=== PATIENT | female | born 1930 | race Caucasian/White ===

== ENCOUNTER 2016-05-16 17:58 | Emergency (ER) | payer MEDICARE, MEDICAID | END 2016-05-16 19:28 | disposition left against medical advice (07) | LOC: UCCORT 17:58 | DX: J02.9 Acute pharyngitis, unspecified (principal); Z53.21 Procedure and treatment not carried out due to patient leaving prior to being seen by health care provider ==

== ENCOUNTER 2017-01-09 09:29 | Emergency (ER) | payer MEDICARE, MEDICAID ==
[2017-01-09 10:27] VITALS: BP 108/50
--- NOTE | 2017-01-09 10:52 | UC ---
Skin Complaint HPI - HPI Summary HPI Summary: Pt is a resident in a senior care. Pt care sales representative groceries states that pt woke this morning wiht c/o right foot tenderness, right foot swelling and serous drainage from right second toe. - History of Current Complaint Time Seen by Provider: 01/09/17 10:05 Stated Complaint: RIGHT FOOT SWOLLEN Hx Obtained From: Family/Tool/Die Maker Hx From Patient Unobtainable Due To: Dementia Hx Last Menstrual Period: n/a ?: No Onset/Duration: Sudden Onset, Still Present Skin Exposure Onset/Duration: Hours Ago Timing: Constant Onset Severity: Mild Current Severity: Mild Location: Discrete, Foot (Right) Character: Redness, Raised Aggravating Factor(s): Touch Alleviating Factor(s): Nothing Associated Signs & Symptoms: Positive: Drainage - serous, Tenderness - right foot Related History: Extremes of Age - Allergy/Home Medications Allergies/Adverse Reactions: Allergies Allergy/AdvReac Type Severity Reaction Status Date / Time Penicillins Allergy Unknown Unknown Verified 01/09/17 10:25 Reaction Details Sulfamethoxazole Allergy Unknown Unknown Verified 01/09/17 10:25 w/Trimethoprim Reaction [From Bactrim] Details VRE Allergy Unknown Uncoded 01/09/17 10:25 Reaction Details Home Medications: Home Medications Acetaminophen [Eq Acetaminophen] 650 mg PO SEE INSTRUCTIONS PRN 01/09/17 [ History Confirmed 01/09/17] Alum & Mag Hydrox-Simethicone [Mylanta 200-200-20 mg/5Ml] 1 rubia PO Q4H PRN 01/09 [History Confirmed 01/09/17] Bacitracin OINT* 0 gm TOPICAL SEE INSTRUCTIONS 01/09/17 [History Confirmed 01/09] Clotrimazole 1% TOPICAL (NF) [Lotrimin 1% TOPICAL (NF)] 1 % EX SEE INSTRUCTIONS 01/09/17 [History Confirmed 01/09/17] Hemmorhoid Ointment 1 applic LA SEE INSTRUCTIONS 01/09/17 [History Confirmed ] Menthol-Zinc Oxide [Gold Andrade] 1 pow EX SEE INSTRUCTIONS 01/09/17 [History Confirmed 01/09/17] Nystatin (Bulk) [Nystatin] 1 pow XX SEE INSTRUCTIONS 01/09/17 [History Confirmed 01/09/17] Oxycodone [Xtampza ER] 5 mg PO BID 01/09/17 [History Confirmed 01/09/17] Polyethylene Glycol 3350* [Miralax*] 17 gm PO DAILY 01/09/17 [History Confirmed 01/09/17] Prevident 1.1% 1 unit PO SEE INSTRUCTIONS 01/09/17 [History Confirmed 01/09/17] Triamcinolone 0.1% CREAM (NF) [Kenalog 0.1% Cream (NF)] 1 applic .SEE ORDER SEE INSTRUCTIONS 01/09/17 [History Confirmed 01/09/17] Review of Systems Constitutional: Negative Skin: Other - erythema, tenderness, serous drainage, swelling Eyes: Negative ENT: Negative Respiratory: Negative Cardiovascular: Negative Gastrointestinal: Negative Genitourinary: Negative Motor: Negative Neurovascular: Negative Musculoskeletal: Negative, Decreased ROM - generalized Neurological: Negative Psychological: Negative Is Patient Immunocompromised?: No All Other Systems Reviewed And Are Negative: Yes PMH/Surg Hx/FS Hx/Imm Hx Previously Healthy: Yes Cardiovascular History: Cardiac Disease Neurological History: Dementia - Surgical History Surgical History: None Surgery Procedure, Year, and Place: Laminectomies L3-L5,C4-T2 and fusion C4-T6, - Family History Known Family History: Positive: Hypertension Family History: lives in supportive [facility] -pt is unable to communicate, staff has no documentation of PFH - Social History Occupation: Retired Lives: Assisted Living Alcohol Use: None Substance Use Type: None Smoking Status (MU): Never Smoked Tobacco Have You Smoked in the Last Year: No - Immunization History Most Recent Influenza Vaccination: 2013 Physical Exam Triage Information Reviewed: Yes Completion Of Physical Exam Limited Due To: Other - dementia Appearance: Well-Appearing Vital Signs: Initial Vital Signs Temp 97.6 F 01/09/17 10:08 Pulse 84 01/09/17 10:08 Resp 24 01/09/17 10:08 BP 108/50 01/09/17 10:08 Vital Signs Reviewed: Yes Eye Exam: Normal ENT Exam: Normal Dental Exam: Normal Neck exam: Normal Respiratory Exam: Normal Cardiovascular Exam: Normal Musculoskeletal: Positive: Strength Limited @ - PMH, ROM Limited @ - PMH Neurological Exam: Normal Psychological Exam: Normal Skin Exam: Other - right dorasl aspect, mild erythema, tenderness, right second toe, mild swelling, erythematous, with dried scab on MIP joint that has serous drainage Course/Dx - Differential Diagnoses - Skin Complaint Differential Diagnoses: Cellulitis, MRSA - Diagnoses Provider Diagnoses: cellulitis Discharge - Discharge Plan Condition: Stable Disposition: HOME Prescriptions: DOXYcycline CAP(*) [DOXYcycline 100MG CAP(*)] 100 mg PO Q12H #20 cap Patient Education Materials: Cellulitis (ED) Referrals: Meg Mead PA [Primary Care Provider] - As Soon As Possible Additional Instructions: Please follow up with Wound Care: [facility] [address] [place] [id number] or [facility] [address] [place] [address] ([address]) [place], [place] [phone]
== END 2017-01-09 11:14 | disposition home or self-care (01) ==
LOC: UCCORT 09:29
DX: L03.115 Cellulitis of right lower limb (principal); B95.62 Methicillin resistant Staphylococcus aureus infection as the cause of diseases classified elsewhere; I51.9 Heart disease, unspecified; F03.90 Unspecified dementia, unspecified severity, without behavioral disturbance, psychotic disturbance, mood disturbance, and anxiety; Z88.0 Allergy status to penicillin; Z88.2 Allergy status to sulfonamides
CPT/HCPCS: 87070; 87205; 87640; 87641; 99212; G0463

== ENCOUNTER 2017-02-07 18:34 | Emergency (ER) | payer MEDICARE, MEDICAID ==
--- NOTE | 2017-02-07 20:19 | UC ---
Respiratory Complaint HPI - HPI Summary HPI Summary: from [facility] fever cough and congestion began today - History of Current Complaint Chief Complaint: UCRespiratory Stated Complaint: CONGESTION/COUGH Time Seen by Provider: 02/07/17 20:09 Hx Obtained From: Patient, Family/Senior Software Engineering Manager Hx Last Menstrual Period: n/a ?: No Onset/Duration: Sudden Onset, Lasting Days - 1 Timing: Constant Severity Initially: Moderate Severity Currently: Moderate Character: Cough: Productive - cough so hard she is throwing up Aggravating Factors: Nothing Alleviating Factors: Nothing Associated Signs And Symptoms: Positive: Fever, Wheezing, URI, Nasal Congestion - Allergies/Home Medications Allergies/Adverse Reactions: Allergies Allergy/AdvReac Type Severity Reaction Status Date / Time Penicillins Allergy Unknown Unknown Verified 02/07/17 20:19 Reaction Details Sulfamethoxazole Allergy Unknown Unknown Verified 02/07/17 20:19 w/Trimethoprim Reaction [From Bactrim] Details VRE Allergy Unknown Uncoded 02/07/17 20:19 Reaction Details Home Medications: Home Medications Alendronate Sodium [Fosamax-] 70 mg PO Q7D 02/07/17 [History Confirmed 02/07/17] Atorvastatin* [Lipitor*] 10 mg PO DAILY 02/07/17 [History Confirmed 02/07/17] Cholecalciferol [Vitamin D3] 1,000 unit PO DAILY 02/07/17 [History Confirmed ] Cranberry (Vaccinium Macrocarp [Cranberry] 400 mg PO BID 02/07/17 [History Confirmed 02/07/17] Docusate CAP* [Colace Cap*] 100 mg PO BID 02/07/17 [History Confirmed 02/07/17] Famotidine TAB* [Pepcid 20 MG TAB*] 20 mg PO DAILY 02/07/17 [History Confirmed 02/07/17] Methenamine Hippurate TAB* [Hiprex TAB*] 1 gm PO TID 02/07/17 [History Confirmed 02/07/17] Nystatin TOP POWDER* 1 applic TOPICAL BID 02/07/17 [History Confirmed 02/07/17] Omeprazole CAP* [Prilosec CAP* 20 MG] 20 mg PO DAILY 02/07/17 [History Confirmed 02/07/17] Sertraline* [Zoloft*] 100 mg PO DAILY 02/07/17 [History Confirmed 02/07/17] amLODIPine TAB* [Norvasc 5 mg TAB*] 5 mg PO DAILY 02/07/17 [History Confirmed ] lamoTRIgine TAB(*) [LaMICtal TAB(*)] 100 mg PO BEDTIME 02/07/17 [History Confirmed 02/07/17] oxyCODONE TAB* [Roxycodone TAB 5 mg*] 5 mg PO BID 02/07/17 [History Confirmed ] PMH/Surg Hx/FS Hx/Imm Hx Previously Healthy: No Endocrine History: Dyslipidemia Cardiovascular History: Hypertension GI/ History: Gastroesophageal Reflux Psychological History: Other Other Psychological History: MR/DD - Surgical History Surgical History: None Surgery Procedure, Year, and Place: Laminectomies L3-L5,C4-T2 and fusion C4-T6, - Family History Known Family History: Positive: None, Hypertension Family History: lives in supportive [facility] -pt is unable to communicate, staff has no documentation of PFH - Social History Occupation: Disabled Lives: [facility] Alcohol Use: None Substance Use Type: None Smoking Status (MU): Never Smoked Tobacco Have You Smoked in the Last Year: No - Immunization History Most Recent Influenza Vaccination: 2013 Review of Systems Constitutional: Fever Skin: Negative Eyes: Negative ENT: Negative Respiratory: Cough Cardiovascular: Negative Gastrointestinal: Negative Genitourinary: Negative Motor: Negative Neurovascular: Negative Musculoskeletal: Negative Neurological: Negative Psychological: Negative Is Patient Immunocompromised?: No All Other Systems Reviewed And Are Negative: Yes Physical Exam Triage Information Reviewed: Yes Appearance: Well-Nourished, Ill-Appearing, Pain Distress Vital Signs Reviewed: Yes Eye Exam: Normal Eyes: Positive: Conjunctiva Clear ENT Exam: Normal ENT: Positive: Normal ENT inspection, Hearing grossly normal, Pharynx normal, Nasal congestion, Nasal drainage, TMs normal, Uvula midline. Negative: Tonsillar swelling, Tonsillar exudate, Trismus, Muffled voice, Hoarse voice, Dental tenderness, Sinus tenderness Dental Exam: Normal Neck exam: Normal Neck: Positive: Supple, Nontender, No Lymphadenopathy Respiratory Exam: Normal Respiratory: Positive: Chest non-tender, No respiratory distress, No accessory muscle use, Rhonchi, Wheezing Cardiovascular Exam: Normal Cardiovascular: Positive: RRR, No Murmur, Pulses Normal, Brisk Capillary Refill Musculoskeletal Exam: Normal Musculoskeletal: Positive: Strength Intact, ROM Intact, Edema @ - chronic Neurological Exam: Normal Neurological: Positive: Alert, Muscle Tone Normal Psychological Exam: Normal Skin Exam: Normal Respiratory Course/Dx - Course Course Of Treatment: to [facility] by private car for further evaluation of illness - Differential Dx/Diagnosis Provider Diagnoses: Fever, URI - Physician Notification/Consults Discussed Patient Care With: Geoff Bond Time Discussed With Above Provider: 20:15 Instructed by Provider To: Transfer Discharge - Discharge Plan Condition: Stable Disposition: OTHER Discharge Disposition Comment: to [facility] by private car Patient Education Materials: Fever in Adults (ED) Referrals: Meg Mead PA [Primary Care Provider] - 2 Days Additional Instructions: Please report directly to the emergency department for further care--
[2017-02-07 20:23] VITALS: BP 125/62
== END 2017-02-07 20:35 ==
LOC: UCCORT 18:34
DX: R50.9 Fever, unspecified (principal); J06.9 Acute upper respiratory infection, unspecified; E78.5 Hyperlipidemia, unspecified; I10 Essential (primary) hypertension; K21.9 Gastro-esophageal reflux disease without esophagitis; F79 Unspecified intellectual disabilities; R62.50 Unspecified lack of expected normal physiological development in childhood; Z88.0 Allergy status to penicillin; Z88.2 Allergy status to sulfonamides
CPT/HCPCS: 99212; G0463

== ENCOUNTER → 2017-12-28 19:00 | Emergency (ER) | payer MEDICARE, MEDICAID ==
--- OUTSIDE RECORDS SUMMARY | 2017-12-28 19:56 | XMS REPORT ---
:1930 External Reference #:[id number] Author Organization [facility] Address [address], [address] [place] [address] Phone [phone] Care Team Providers Name Role Phone Janet Mead PA Care Team Information Spectral Scientist Unavailable Janet Mead PA Primary Care Physician Unavailable Payers Type Date Identification Numbers Payment Provider Subscriber Medicare Primary Policy Number: [id number] Medicare [facility] PayID: [id number] [address] [place] [address] Medicaid Policy Number: [id number] Medicaid [facility] PayID: [id number] [address] [place] [address] Problems Date Description Provider Status Onset: 07/05/2013 Closed fracture of head of radius Bahman Chao MD, Active FACS Onset: 07/26/2013 Aftercare For Healing Traumatic Bahman Chao MD, Active Fracture Of Other Bone FACS Onset: 04/17/2014 Urinary tract infectious disease Gemma Bhatti M.D. Active Onset: 04/17/2014 Pseudomonas Gemma Bhatti M.D. Active Onset: 09/17/2016 Elderly fall Active Onset: 03/11/2012 Altered mental status Active Onset: 07/03/2013 Fracture of radial head Active Onset: 07/18/2013 Backache Active Onset: 07/18/2013 Fall Active Onset: 07/18/2013 Injury of ribs Active Onset: 08/21/2013 Seizure disorder Active Onset: 08/21/2013 Hypertensive disorder Active Onset: 09/23/2013 Delirium Active Onset: 11/20/2013 Cellulitis Active Onset: 04/04/2014 Complication of urinary catheter Active Onset: 04/08/2014 Urinary catheter in situ Active Onset: 04/12/2014 Urinary catheter in situ Active Onset: 05/07/2014 Asthenia Active Onset: 05/31/2014 Altered mental status Active Onset: 06/26/2015 Upper gastrointestinal hemorrhage Active Onset: 11/30/2015 Delirium Active Onset: 03/24/2016 Seizure Active Onset: 05/16/2016 Abscess Active Family History Date Family Member(s) Problem(s) Comments General Non Contributory Father due to Unknown Causes () Social History Type Date Description Comments Marital Status Single Lives With Roommate Home Environment Lives In Adult Home Diet Patient is on a low fat diet Occupation Currently Working Volunteers at [employer]. Work Status Currently Working Cigarette Use Never Smoked Cigarettes ETOH Use Denies alcohol use Smoking Patient has never smoked Recreational Drug Use Never Used Drugs Daily Caffeine Comsumes on average 1 cup of decaff coffee per day Clerical Office Name [facility] Allergies, Adverse Reactions, Alerts Date Description Reaction Status Severity Comments Sulfa Drugs active Penicillin active 01/14/2017 Penicillins active 04/17/2014 Bactrim active 01/14/2017 Sulfamethoxazole active 01/14/2017 Trimethoprim active 01/14/2017 Ciprofloxacin active Medications Medication Date Status Form Strength Qnty SIG Indications Ordering Provider Nitrofurantoin 01/14 Active Capsules 100mg 20cap 2 Times A Unknown Monohyd Macro s Day Amlodipine 05/19 Active Tablets 5mg 30tab Once Daily Unknown Bes s Lamotrigine 05/19 Active Tablets 25mg 30tab Once Daily s Aspirin Ec Active Tablets DR 81mg 1 po qd Frederick, Vasile Hinton MD, PhD Famotidine Active Tablets 20mg Unknown /0000 Cranberry Active Capsules 400mg Unknown /0000 Artificial Active Solution 5-6mg/ml Unknown Tears / Arthritis Pain Active Tablets ER 650mg Unknown Relief / Vitamin D Active Tablets 1000Unit 1 by mouth Unknown / every day Sertraline HCL Active Tablets 100mg 30tab 1 by mouth Unknown /0000 s every day Glycolax Active Powder 3350NF 1Mont 1 scoop by Unknown /0000 h mouth every day with fluids 8 Hour Pain Active Tablets ER 650mg 2 Times A Unknown Relief /0000 Day Acetaminophen Active Tablets 325mg Every 4 Unknown /0000 Hours as needed for Fever/Pain Alendronate Active Tablets 70mg Every Week Unknown Sodium / Bacitracin Active Ointment 500Unit/G 3 Times Unknown (External) /0000 M Daily as needed for Cuts Or Minor Wounds [facility] D3 Active Capsules 1000Unit Once Daily Unknown / Clotrimazole Active Cream 1% 2 Times A Unknown Anti-Fungal / Day as needed for Red/Peeling Skin Between Toes Docusate Sodium Active Capsules 100mg 2 Times A Unknown / Day Doxycycline Active Capsules 100mg 20cap Every 12 Unknown Hyclate / s Hours Aluminum-Magnes Active Suspension 200-200-2 Every 4 Unknown ium-Simethicone / 0mg/5ML Hours as needed for Upset Stomach/Angela gestion Medicated Body Active Powder 2 Times A Unknown / Day Methenamine Active Tablets 1gm 3 Times Unknown Hippurate Daily Nystatin Active Powder [id number] 2 Times A Unknown /0000 t/GM Day as needed for Redness In Skin Folds Omeprazole Active Capsules DR 40mg Once Daily Unknown Major-Prep Active Ointment 0.25-14-7 2 Times A Unknown Hemorrhoidal /0000 4.9% Day as needed for Hemorrhoids Polyvinyl Active Solution 1.4% 2 Times A Unknown Alcohol Day Triamcinolone Active Cream 0.1% 2 Times A Unknown Acetonide Day as needed for Red/Peeling Skin Between Toes Oxycodone HCL Active Tablets 10mg 1 tablet by Unknown /0000 mouth every 6 hours as needed pain Quetiapine Active Tablets 25mg take 1 Unknown Fumarate tablet by mouth 1 hour prior to sleep,if no improvement in 3 days,may try 2 tablets as needed up to 4 tablets at night Nexium Hx Capsules DR 20mg 30cap 1 po qd Otoniel Lorena Burch MD, PhD 07/05 Lipitor Hx Tablets 10mg 90tab 1 po qd Otoniel Lorena Burch MD, PhD 12/07 Metoprolol Hx Tablets 25mg 60tab 1/2 po bid Otoniel, Tartrate s Lorena Trotter MD, PhD 07/05 Colace Hx Capsules 100mg 60cap 1 po prn Otoniel, s Lorena Trotter MD, PhD 04/16 Zoloft Hx Tablets 50mg 60tab 1 po qd Otoniel Lorena Burch MD, PhD 04/16 Multivitamins 00 Hx Tablets 1 po qd Otoniel Lorena Trotter MD, PhD 12/07 Zyvox Hx Tablets 600mg po bid Otoniel Lorena Trotter MD, PhD 07/05 Flagyl Hx Tablets 500mg po bid Otoniel Lorena Trotter MD, PhD 07/05 Fiber-Lax Hx Tablets 625mg Unknown / - 04/16 Alendronate Hx Tablets 70mg 1 tab qweek Unknown Sodium / - 04/16 Gold Andrade Hx Powder Unknown / - 04/16 Amlodipine Hx Tablets 5mg 1 po qd Unknown Besylate / - 04/16 Guiatuss Hx Syrup 100mg/5ML Unknown / - 04/16 Mylanta Hx Suspension 200-200-2 Unknown 0mg/5ML - 04/16 Acetaminophen Hx Tablets 325mg Unknown / - 04/16 Nystatin Hx Powder Unknown / - 04/16 Bacitracin Hx Ointment 500Unit/G Unknown / M - 04/16 Hemorrhoidal Hx Ointment 79.3-3% Unknown / - 04/16 Clotrimazole/Be Hx Cream Unknown tamethasone Dipropionate - 04/16 Fluzone Hx Tere 0.5ml Adm 0.5ML Im Unknown High-Dose / Utd - 12/07 Vital Signs Date Vital Result Comment 04/17/2014 BP Systolic Sitting Right Arm 119 mmHg BP Diastolic Sitting Right Arm 62 mmHg Heart Rate 66 /min Respiratory Rate 18 /min Height 67 inches 5'7" Weight 175.00 lb BMI (Body Mass Index) 27.4 kg/m2 BSA (Body Surface Area) 1.91 m2 O2 % BldC Oximetry 100 % 07/05/2013 BP Systolic Sitting Left Arm 132 mmHg BP Diastolic Sitting Left Arm 68 mmHg Height 67 inches 5'7" Weight 180.00 lb per patient BMI (Body Mass Index) 28.2 kg/m2 BSA (Body Surface Area) 1.93 m2 10/09/2009 Heart Rate 87 /min Respiratory Rate 16 /min Weight 171.00 lb 03/25/2004 Height 60 inches 5'0" Weight 230.00 lb Results Test Date Test Result H/L Range Note Manual blood 01/14/2017 Manual blood 1 High -0 metamyelocytes/100 metamyelocytes/100 leukocytes leukocytes Manual blood 01/14/2017 Manual blood 7 0-10 monocytes/100 monocytes/100 leukocytes leukocytes Manual blood 01/14/2017 Manual blood 1 High -0 myelocytes/100 myelocytes/100 leukocytes leukocytes Manual blood segmented 01/14/2017 Manual blood 71 33-73 neutrophils/100 segmented leukocytes neutrophils/100 leukocytes Neutrophils # Bld Auto 01/14/2017 Neutrophils # Bld 5.49 1.8-7.0 Auto Potassium SerPl-sCnc 01/14/2017 Potassium SerPl-sCnc 4.3 3.5-5.1 RDW RBC Auto 01/14/2017 RDW RBC Auto 48.2 High 3-47 RDW RBC Auto-Rto 01/14/2017 RDW RBC Auto-Rto 14.9 High 11.7-14.4 Serum carbon dioxide 01/14/2017 Serum carbon dioxide 24 21-32 measurement measurement Serum or plasma 01/14/2017 Serum or plasma 3.1 Low 3.4-5.0 albumin measurement albumin measurement (mass/volume) (mass/volume) Serum or plasma 01/14/2017 Serum or plasma 57 45-117 alkaline phosphatase alkaline phosphatase measurement ( measurement (enzymatic activity/volume) Serum or plasma 01/14/2017 Serum or plasma 10 Low 15-37 aspartate aspartate aminotransferase aminotransferase measure measurement (enzymatic activity/volume) Serum or plasma 01/14/2017 Serum or plasma 8.5 8.5-10.1 calcium measurement calcium measurement (mass/volume) (mass/volume) Serum or plasma 01/14/2017 Serum or plasma 0.7 0.6-1.3 creatinine measurement creatinine (mass/volum measurement (mass/volume) Serum or plasma 01/14/2017 Serum or plasma 98 74-106 glucose measurement glucose measurement (mass/volume) (mass/volume) Serum or plasma 01/14/2017 Serum or plasma 7.0 6.4-8.2 protein measurement protein measurement (mass/volume) (mass/volume) Serum or plasma total 01/14/2017 Serum or plasma total 0.4 0.2-1.0 bilirubin measurement bilirubin measurement (mass/ (mass/volume) Serum or plasma urea 01/14/2017 Serum or plasma urea 16 7-18 nitrogen measurement nitrogen measurement (mass/vo (mass/volume) Serum sodium 01/14/2017 Serum sodium 135 Low 136-145 measurement measurement Unloinc 01/14/2017 Unloinc Diff Ordered WBC # Bld Auto 01/14/2017 WBC # Bld Auto 8.4 3.1-10.7 Alt SerPl-cCnc 01/14/2017 Alt SerPl-cCnc 16 12-78 Albumin/Glob SerPl 01/14/2017 Albumin/Glob SerPl 0.8 Anion Gap SerPl-sCnc 01/14/2017 Anion Gap SerPl-sCnc 9 8-16 Automated blood 01/14/2017 Automated blood 0.03 0.0-0.1 basophil count basophil count (count/volume) (count/volume) Automated blood 01/14/2017 Automated blood 0.14 0.0-0.5 eosinophil count eosinophil count Automated blood 01/14/2017 Automated blood 35.7 Low 36.0-46.1 hematocrit (volume hematocrit (volume fraction) fraction) Automated blood 01/14/2017 Automated blood 1.86 1.0-4.0 lymphocyte count lymphocyte count (number/volume) (number/volume) Automated blood 01/14/2017 Automated blood 209 150-400 platelet count platelet count Automated blood 01/14/2017 Automated blood 11.2 8.9-12.4 platelet mean volume platelet mean volume measurement measurement Automated erythrocyte 01/14/2017 Automated erythrocyte 28.8 25.9-32.7 mean corpuscular mean corpuscular hemoglobin hemoglobin (mass per erythrocyte) Automated erythrocyte 01/14/2017 Automated erythrocyte 32.2 30.8-34.3 mean corpuscular mean corpuscular hemoglobin hemoglobin concentration measurement (mass/volume) Automated erythrocyte 01/14/2017 Automated erythrocyte 89.5 80.9-99.0 mean corpuscular mean corpuscular volume volume BUN/Creat SerPl 01/14/2017 BUN/Creat SerPl 22.8 Blood erythrocytes 01/14/2017 Blood erythrocytes 3.99 3.90-5.40 automated count automated count (number/volume) (number/volume) Blood hemoglobin 01/14/2017 Blood hemoglobin 11.5 Low 11.6-15.8 measurement measurement (mass/volume) (mass/volume) Blood monocytes 01/14/2017 Blood monocytes 0.90 0.3-0.9 automated count automated count (number/volume) (number/volume) Blood platelet 01/14/2017 Blood platelet Normal adequacy detection by adequacy detection by light microsc light microscopy Blood total cell count 01/14/2017 Blood total cell 100 count Chloride SerPl-sCnc 01/14/2017 Chloride SerPl-sCnc 102 98-107 Eosinophil % 01/14/2017 Eosinophil % 2 0-5 Globulin Ser Calc-mCnc 01/14/2017 Globulin Ser 3.9 1.9-4.3 Calc-mCnc Manual blood 01/14/2017 Manual blood 17 Low 20-42 lymphocytes/100 lymphocytes/100 leukocytes leukocytes Manual blood 01/14/2017 Manual blood 1 0-2 basophils/100 basophils/100 leukocytes leukocytes Comprehensive 11/25/2016 Glucose 100 mg/dL 74-106 1 Metabolic Panel BUN 20 mg/dL High 7-18 1 Creatinine 0.7 mg/dL 0.6-1.3 1 Glom Filtration Rate, Estimate >60 mL/min >60 1 If >60 mL/min >60 1, 2 BUN/Creat 28.5 ratio 1 Sodium 136 mmol/L 136-145 1 Potassium 4.4 mmol/L 3.5-5.1 1 Chloride 105 mmol/L 98-107 1 Carbon Dioxide 24 mmol/L 21-32 1 Anion Gap 7 mEq/L Low 8-16 1 Calcium 8.9 mg/dL 8.5-10.1 1 Total Protein 7.7 g/dL 6.4-8.2 1 Albumin 3.3 g/dL Low 3.4-5.0 1 Globulin 4.4 g/dL High 1.9-4.3 1 Alb/Glob 0.8 ratio 1 Bilirubin,Total 0.3 mg/dL 0.2-1.0 1 Sgot/Ast 5 U/L Low 15-37 1, 3 SGPT/Alt 13 U/L 12-78 1 Alkaline Phosphatase 64 U/L 45-117 1 Laboratory test 11/23/2016 C-Reactive 31.9 mg/L High <3.0 4 finding Protein,Quant Bacteria Ur Cult 11/08/2016 Bacteria Ur Cult Organism: Urethral Dionne Serum or plasma 10/19/2016 Serum or plasma 52 >40 cholesterol in HDL cholesterol in HDL measurement (ma measurement (mass/volume) Serum or plasma 10/19/2016 Serum or plasma 57 < 100 cholesterol in LDL cholesterol in LDL measurement by measurement by calculation (mass/volume) Serum or plasma 10/19/2016 Serum or plasma 135 <200 cholesterol cholesterol measurement measurement (mass/volu (mass/volume) Serum or plasma 10/19/2016 Serum or plasma 2.0 2.0-20.0 lamotrigine lamotrigine measurement measurement (mass/volu (mass/volume) Serum or plasma 10/19/2016 Serum or plasma 132 <150 triglyceride triglyceride measurement (mass/vol measurement (mass/volume) Neutrophils/leuk NFr 05/31/2015 Neutrophils/leuk NFr 74.5 High 40.4-72.8 Bld Auto Bld Auto Lymphocytes/leuk NFr 05/31/2015 Lymphocytes/leuk NFr 17.0 17.0-46.1 Bld Auto Bld Auto Eosinophil/leuk NFr 05/31/2015 Eosinophil/leuk NFr 1.4 0.0-6.6 Bld Auto Bld Auto Basophils/leuk NFr 05/31/2015 Basophils/leuk NFr 0.4 0.0-1.1 Bld Auto Bld Auto Monocytes/leuk NFr 05/31/2015 Monocytes/leuk NFr 6.7 4.3-13.2 Bld Auto Bld Auto Activated partial 05/30/2015 Activated partial 31.0 23.9-34.3 thromboplastin time thromboplastin time (aPTT) in pl (aPTT) in platelet poor plasma by coagulation assay Platelet poor plasma 05/30/2015 Platelet poor plasma 1.0 0.9-1.1 international international normalized rati normalized ratio (Inr) by coagulation assay (relative time) Prothrombin time (PT) 05/30/2015 Prothrombin time 13.7 12.1-14.9 in platelet poor (PT) in platelet plasma poor plasma Aerobic blood culture 05/28/2015 Aerobic blood No Growth: culture Final Report Anaerobic blood 05/28/2015 Anaerobic blood No Growth: culture culture Final Report pH Ur Strip.auto 05/28/2015 pH Ur Strip.auto 7.5 6.5-7.5 Urobilinogen Ur 05/28/2015 Urobilinogen Ur 0.2 0.2-1.0 Strip-aCnc Strip-aCnc Urine total bilirubin 05/28/2015 Urine total Negative Negative detection by bilirubin detection automated test by automated test strip Urine hemoglobin 05/28/2015 Urine hemoglobin Trace Negative detection by detection by automated test strip automated test strip Urine glucose 05/28/2015 Urine glucose Negative Negative measurement by measurement by automated test strip automated test strip (mass/volume) Urine appearance 05/28/2015 Urine appearance SL Cloudy Clear determination determination Unloinc 05/28/2015 Unloinc Culture To Follow Serum or plasma 05/28/2015 Serum or plasma 1.0 0.4-1.9 lactate measurement lactate measurement (moles/volume) (moles/volume) Serum or plasma 05/28/2015 Serum or plasma 0.028 troponin i.cardiac troponin i.cardiac measurement (ma measurement (mass/volume) Bacteria detection in 05/28/2015 Bacteria detection Moderate High None Seen urine sediment by in urine sediment by light micr light microscopy Color Ur 05/28/2015 Color Ur Yellow Yellow Epithelial cells 05/28/2015 Epithelial cells Few None Seen detection in urine detection in urine sediment by li sediment by light microscopy Ketones Ur 05/28/2015 Ketones Ur Negative Negative Strip.auto-mCnc Strip.auto-mCnc Leukocyte esterase Ur 05/28/2015 Leukocyte esterase Large High Negative Ql Strip.auto Ur Ql Strip.auto Nitrite Ur Ql 05/28/2015 Nitrite Ur Ql Positive High Negative Strip.auto Strip.auto Prot Ur 05/28/2015 Prot Ur Negative Negative Strip.auto-mCnc Strip.auto-mCnc Specific gravity of 05/28/2015 Specific gravity of 1.010 1.010-1.030 Urine by Automated Urine by Automated test strip test strip Basic Metabolic Panel 03/16/2012 Glucose 98 mg/dL 76-115 BUN 31 mg/dL High 5-23 Creatinine 1.0 mg/dL 0.5-1.4 Glom Filtration Rate, Estimate 56 mL/min >60 If >60 mL/min >60 5 BUN/Creat 31.0 ratio Sodium 135 mmol/L Low 136-145 Potassium 4.4 mmol/L 3.5-5.1 Chloride 100 mmol/L 98-107 Carbon Dioxide 29 mEq/L 18-29 Anion Gap 10 mEq/L 8-16 Calcium 9.1 mg/dL 8.5-10.1 CBC 03/16/2012 White Blood Count 8.0 K/uL 3.1-10.7 Red Blood Count 4.36 M/uL 3.90-5.40 Hemoglobin 13.0 gm/dL 11.6-15.8 Hematocrit 39.7 % 36.0-46.1 Mean Cell Volume 91.1 fl 80.9-99.0 Mean Corpuscular HGB 29.8 pg 25.9-32.7 Mean Corpuscular HGB Conc 32.7 g/dL 30.8-34.3 Platelet Count 192 K/uL 155-360 Red Cell Distri Width %CV 14.3 % 11.7-14.4 Mean Platelet Volume 11.4 fL 8.9-12.4 Laboratory test finding 03/15/2012 Gentamycin Peak 5.2 ug/mL 4.0-8.0 6 Laboratory test finding 03/15/2012 Gentamycin Trough 0.9 ug/mL 0.0-2.0 7 Laboratory test finding 03/14/2012 C-Reactive Protein,Quant < 2.9 mg/L 0.0-4.9 Urinalysis With 03/13/2012 Urine Color STRAW Yellow Microscopic Urine Clarity SL CLOUDY Clear Urine Glucose - Dipstick NEGATIVE mg/dL Negative Urine Bilirubin - Dipstick NEGATIVE Negative Urine Ketone NEGATIVE mg/dL Negative Urine Specific Keavy 1.010 1.010-1.030 Urine Blood TRACE Negative Urine PH 7.5 6.5-7.5 Urine Protein - Dipstick NEGATIVE mg/dL Negative Urine Urobilinogen - Dipstick 0.2 E.U./dL 0.2-1.0 Urine Nitrite - Dipstick NEGATIVE Negative Urine Leuk Esterase MODERATE High Negative Urine RBC 0-2 rbc/hpf 0-7 Urine WBC 0-2 wbc/hpf 0-7 Urine Epithelial Cells MANY NONESEEN/lpf 8 Urine Bacteria FEW NONESEEN Urine Amorph Sediment SMALL Negative Laboratory test finding 03/13/2012 Urine Screen See Note 9 Laboratory test finding 03/13/2012 Urine Culture See Note 10 Laboratory test finding 03/13/2012 Gentamycin Peak 5.2 ug/mL 4.0-8.0 11 Laboratory test finding 03/13/2012 Gentamycin Trough 0.7 ug/mL 0.0-2.0 12 Basic Metabolic Panel 03/13/2012 Glucose 108 mg/dL 76-115 BUN 11 mg/dL 5-23 Creatinine 0.7 mg/dL 0.5-1.4 Glom Filtration Rate, Estimate >60 mL/min >60 If >60 mL/min >60 13 BUN/Creat 15.7 ratio Sodium 136 mmol/L 136-145 Potassium 4.0 mmol/L 3.5-5.1 14 Chloride 101 mmol/L 98-107 Carbon Dioxide 29 mEq/L 18-29 Anion Gap 10 mEq/L 8-16 Calcium 8.6 mg/dL 8.5-10.1 CBS W/Automated Diff 03/12/2012 White Blood Count 10.1 K/uL 3.1-10.7 Red Blood Count 3.93 M/uL 3.90-5.40 Hemoglobin 12.0 gm/dL 11.6-15.8 Hematocrit 35.3 % Low 36.0-46.1 Mean Cell Volume 89.8 fl 80.9-99.0 Mean Corpuscular HGB 30.5 pg 25.9-32.7 Mean Corpuscular HGB Conc 34.0 g/dL 30.8-34.3 Platelet Count 183 K/uL 155-360 Red Cell Distri Width SD 44.1 fl 3-47 Red Cell Distri Width %CV 13.7 % 11.7-14.4 Mean Platelet Volume 10.5 fL 8.9-12.4 Neut% 75.9 % High 40.4-72.8 Lymph % 13.7 % Low 17.0-46.1 Woodward % 10.0 % 4.3-13.2 Eo% 0.2 % 0.0-6.6 Bas% 0.2 % 0.0-1.1 Neut# 7.67 K/uL High 1.0-7.0 Lymph # 1.39 K/uL 0.8-3.4 Woodward # 1.01 K/uL High 0.3-0.9 Eos # 0.02 K/uL 0.0-0.5 Baso # 0.02 K/uL 0.0-0.1 Basic Metabolic Panel 03/12/2012 Glucose 131 mg/dL High 76-115 BUN 9 mg/dL 5-23 Creatinine 0.7 mg/dL 0.5-1.4 Glom Filtration Rate, Estimate >60 mL/min >60 If >60 mL/min >60 15 BUN/Creat 12.8 ratio Sodium 136 mmol/L 136-145 Potassium 3.3 mmol/L Low 3.5-5.1 Chloride 103 mmol/L 98-107 Carbon Dioxide 27 mEq/L 18-29 Anion Gap 9 mEq/L 8-16 Calcium 8.5 mg/dL 8.5-10.1 Laboratory test finding 03/12/2012 Gentamycin Trough 0.6 ug/mL 0.0-2.0 16 Laboratory test finding 03/12/2012 Gentamycin Peak 4.4 ug/mL 4.0-8.0 17 1 L.89,L.893 2 Note: Persistent reduction for 3 months or more in an eGFR <60 mL/min/1.73 m2 defines CKD. Patients with eGFR values >/=60 mL/min/1.73 m2 may also have CKD if evidence of persistent proteinuria is present. The original MDRD equation for estimated GFR is not valid for patients less than 18 years of age. Additional information may be found at www.kdoqi.org. 3 Values below the stated reference ranges of AST and ALT can be seen in normal populations. Clinical correlation is suggested. 4 L89.893 5 Note: Persistent reduction for 3 months or more in an eGFR <60 mL/min/1.73 m2 defines CKD. Patients with eGFR values >/=60 mL/min/1.73 m2 may also have CKD if evidence of persistent proteinuria is present. The original MDRD equation for estimated GFR is not valid for patients less than 18 years of age. Additional information may be found at www.kdoqi.org. 6 DATE AND TIME OF LAST DOSE? 03/15 @ 0900 QUERY: DATE AND TIME OF LAST GENTA DOSE ? 7 DATE AND TIME OF LAST DOSE? 03/14 @ 2100 QUERY: DATE AND TIME OF LAST GENTA DOSE ? 8 POSSIBLE UROGENITAL CONTAMINATION. 9 03/13/12 LAB.CBL Deleted by Reflex Group UACOM 10 COLONY COUNT ! 10,000 - 20,000 CFU/ml Organism 1 ! URETHRAL DIONNE 11 DATE AND TIME OF LAST DOSE? 03/13@0900 QUERY: DATE AND TIME OF LAST GENTA DOSE ? 12 DATE AND TIME OF LAST DOSE? 03/12@2099 QUERY: DATE AND TIME OF LAST GENTA DOSE ? 13 Note: Persistent reduction for 3 months or more in an eGFR <60 mL/min/1.73 m2 defines CKD. Patients with eGFR values >/=60 mL/min/1.73 m2 may also have CKD if evidence of persistent proteinuria is present. The original MDRD equation for estimated GFR is not valid for patients less than 18 years of age. Additional information may be found at www.kdoqi.org. 14 Result confirmed by repeat analysis. 15 Note: Persistent reduction for 3 months or more in an eGFR <60 mL/min/1.73 m2 defines CKD. Patients with eGFR values >/=60 mL/min/1.73 m2 may also have CKD if evidence of persistent proteinuria is present. The original MDRD equation for estimated GFR is not valid for patients less than 18 years of age. Additional information may be found at www.kdoqi.org. 16 DATE AND TIME OF LAST DOSE? 03/11 QUERY: DATE AND TIME OF LAST GENTA DOSE ? 17 DATE AND TIME OF LAST DOSE? 03/12 QUERY: DATE AND TIME OF LAST GENTA DOSE ? Procedures Date CPT Code Description Status 12/07/2017 66071 Debridement Nails Any Method 1-5 Completed 12/07/2017 30075 Trim Nondystrophic Nails Completed 01/04/2017 30184 Debridement:Skin, And Subcutaneous Tissue Completed 10/19/2016 08258 Mammography Unilateral Completed 05/31/2015 45373 Insert peripherally inserted venous cath no port/pump Completed over age 5 07/26/2013 88644 Radiology, Elbow Complete Completed 07/19/2013 54220 Echocardiogram Complete Completed 07/05/2013 78373 Radial head/neck fx closed w/o manipulation Completed 06/28/2012 42093 Echocardiogram Complete Completed 05/11/2011 91079 Stress Test Interpre And Report Only Completed 05/11/2011 75569 Stress Test Physician Super Only Completed 05/11/2011 81048 Stress Test Physician Super Only Completed 05/11/2011 10042 Myocardial Imaging Tomographic Multiple Study AT Rest Completed Or Stress 10/09/2009 85010 EKG-Tracing And Report Completed 09/05/2009 04182 EKG Interpretation And Report Only Completed 09/04/2009 24945 Echocardiogram Complete Completed 03/25/2004 80041 Asp./Injection major joint Completed Encounters Type Date Location Provider CPT E/M Dx Office Visit 05/28/2015 2:42p [facility] Lucy Ahuja M.D. 99977 N39.0 [facility] Center R41.82 Office Visit 02/28/2015 10:27a [facility] Lucy Ahuja M.D. 81685 N39.0 [facility] [place] B96.4 R56.9 Office Visit 08/26/2014 8:52a [facility] [place] [address] 780.97 [facility] Center 599.0 Office Visit 05/31/2014 10:44a [facility] [place] [address] 599.0 [facility] 780.97 Office Visit 05/07/2014 1:57p [facility] Dirk Jha M.D. 78134 599.0 [facility] 319 Office Visit 04/17/2014 11:20a [facility] Office Gemma Bhatti M.D. 81568 041.7 599.0 Office Visit 03/25/2014 10:58a Primary Care Office Gemma Bhatti M.D. 94378 599.0 041.7 Office Visit 11/26/2013 9:47a [facility] Mary Kay Calabrese M.D. 54624 599.0 Medical Center 780.97 Office Visit 11/03/2013 11:42a [facility] Kentrell Elizabeth M.D. 45839 780.97 Medical Center 599.0 Office Visit 08/21/2013 10:46a [facility] [place] [address] 780.39 Medical Center 599.0 Office Visit 07/19/2013 3:54p [facility] Laura Mendieta M.D. 05385 486 [facility] 401.9 276.1 293.0 Office Visit 11/04/2012 3:24p [facility] [place] [address] 780.2 Medical Center 599.0 Office Visit 05/12/2011 2:36p Cardiology [place] [address] 786.50 Office Visit 10/09/2009 2:00p Cardiology [place] [id number] Plan of Care Future Appointment(s):04/12/2018 9:25 am - Bahman Gilbetr DPM at Podiatry [id number]/07/2017 - Bahman Gilbert, [id number] Unsp [facility] [place] arteries of extremities, bilateral legsFollow up:Follow-up in 4 months for hazardous [id number] Tinea unguiumComments:All the nails were trimmed in length with a sterile nail nipper. The leading edges were deprived with a nail bur and electric podiatry drill. The debris under the edges of the great toenails was divided with a sterile curet. The thick fungal nail (S) 1 left were reduced to a more normal thickness onher right drill. Mycotic debris was debrided from around and under the nail edges with a curette.L60.3 Nail dystrophyComments:The thick dystrophic nail (S) [1??5 right] was (were) filed down to a more normal thickness with a nail bur and podiatry drill.
[2017-12-28 20:11] VITALS: BP 120/45
--- NOTE | 2017-12-28 20:13 | UC ---
Hand/Wrist HPI - HPI Summary HPI Summary: 87-year-old woman comes in today with a chief complaint of swelling of the left hand. It was noticed today the swelling of the dorsal aspect over the proximal first second and third metacarpals. Patient has dementia and does not provide much of a history. Her child day care center worker stated there is no known injury although she does have a food tray that she may have struck her hand on. No other injuries. - History Of Current Complaint Stated Complaint: LEFT HAND SKIN CONCERN Time Seen by Provider: 12/28/17 19:56 Hx Last Menstrual Period: n/a - Allergies/Home Medications Allergies/Adverse Reactions: Allergies Allergy/AdvReac Type Severity Reaction Status Date / Time Penicillins Allergy Unknown Unknown Verified 05/30/17 18:13 Reaction Details sulfamethoxazole Allergy Unknown Unknown Verified 05/30/17 18:13 [From Bactrim] Reaction Details trimethoprim [From Bactrim] Allergy Unknown Unknown Verified 05/30/17 18:13 Reaction Details Home Medications: Home Medications QUEtiapine TAB* [Seroquel 25 MG TAB*] 25 mg PO DAILY 12/28/17 [History Confirmed 12/28/17] amLODIPine TAB* [Norvasc 5 mg TAB*] 5 mg PO DAILY 12/28/17 [History Confirmed ] PMH/Surg Hx/FS Hx/Imm Hx Cardiovascular History: Hypertension - Surgical History Surgical History: None Surgery Procedure, Year, and Place: Laminectomies L3-L5,C4-T2 and fusion C4-T6, - Family History Known Family History: Positive: None, Hypertension Family History: lives in supportive shelter -pt is unable to communicate, staff has no documentation of PFH - Social History Alcohol Use: None Substance Use Type: None Smoking Status (MU): Never Smoked Tobacco Have You Smoked in the Last Year: No - Immunization History Most Recent Influenza Vaccination: 2013 Review of Systems Constitutional: Negative Skin: Other - SEE HPI Eyes: Negative ENT: Negative Respiratory: Negative Cardiovascular: Negative Gastrointestinal: Negative Motor: Negative Neurovascular: Negative Musculoskeletal: Other: - SEE HPI Neurological: Other - DEMENTIA Psychological: Negative Is Patient Immunocompromised?: No All Other Systems Reviewed And Are Negative: Yes Physical Exam Triage Information Reviewed: Yes Completion Of Physical Exam Limited Due To: Other - DEMENTIA Appearance: Well-Appearing, No Pain Distress, Well-Nourished Vital Signs Reviewed: Yes Eye Exam: Normal Neck exam: Normal Neck: Positive: Supple Respiratory: Positive: No respiratory distress Musculoskeletal: Positive: Other: - Left hand has swelling on the dorsum over the proximal first second and third metacarpals. It is not hot to touch no evidence of infection. No sensation deficit normal capillary refill good range of motion with the fingers and the wrist. Neurological: Positive: Muscle Tone Normal Psychological Exam: Normal Psychological: Positive: Age Appropriate Behavior Skin: Positive: Other - Swelling of the dorsum left hand as described above Hand/Wrist Course/Dx - Course Course Of Treatment: I discussed the x-ray with the patient and her caregiver. 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 I do not see an acute fracture. Radiologist reading is pending. In clinic be placed a thumb spica splint to be used as needed and especially to be used if the radiologist sees fracture. Radiologist to see a fracture she'll need to see orthopedics otherwise symptomatic treatment and follow-up with primary care doctor. - Differential Dx/Diagnosis Provider Diagnoses: LEFT HAND SWELLING. ARTHRITIS Discharge - Sign-Out/Discharge Documenting (check all that apply): Patient Departure All imaging exams completed and their final reports reviewed: No - Discharge Plan Condition: Stable Disposition: HOME Patient Education Materials: Hand Sprain (ED) Forms: *Work Release Referrals: Meg Mead PA [Primary Care Provider] - Additional Instructions: FOLLOW UP WITH YOUR DOCTOR IF NOT COMPLETELY IMPROVED. RADIOLOGIST READING OF YOUR LEFT HAND IS PENDING. GET RECHECKED FOR ANY WORSENING OF YOUR CONDITION OR QUESTIONS OR CONCERNS. - Billing Disposition and Condition Condition: STABLE Disposition: Home
--- NOTE | 2017-12-29 09:03 | UC ---
- Progress Note Progress Note: Patient Name: FRED SILVER Medical Record#: [id number] Ordering Physician: Rloan Tafoya MD Acct.#: [id number] : 1930 Age: 87 Sex: F Location: [facility]RG[facility] Exam Date: 12/28/171999 ADM Status: [facility] ER Order Information: WRIST LEFT 3+ VWS Accession Number: [id number] CPT: 50015 INDICATION: Left wrist pain and swelling. TECHNIQUE: 3 views of the left wrist were obtained. FINDINGS: There is diffuse soft tissue swelling. The bones appear osteopenic. There is complete loss of joint space between the distal radius and scaphoid bone. 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 There is moderate to severe osteoarthritic change in the first carpal metacarpal joint. No fracture is seen. IMPRESSION: 1. DIFFUSE SOFT TISSUE SWELLING. 2. MODERATE TO SEVERE OSTEOARTHRITIC CHANGE. 3. 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 R0 Preliminary Imaging Read NO DISCREPANCY <Electronically signed by Kristofer Dsouza MD in OV> 12/29/17752 Dictated By: Kristofer Dsouza MD Dictated Date/Time: 12/29/17752 Transcribed Date/Time: 12/29/17750 Copy to: CC:Meg VIDES; Rolan Tafoya MD Imaging - [facility] Imaging - [facility] [address] [address] ph ([phone]) ph ([phone]) ph ([phone]) This report is only to be considered final once signed by the Provider(s) as displayed in the "<Electronically Signed by >" field (s). Absence of a signature indicates the report is in a draft status and still needs to be finalized. In the event this document was created by someone other than the signing Provider, the individual initiating the document will be listed in the "Entered by:" or "Dictated by:" galeana. 1 of 1 Discharge - Sign-Out/Discharge Documenting (check all that apply): Post-Discharge Follow Up All imaging exams completed and their final reports reviewed: No Studies - Discharge Plan Condition: Stable Disposition: HOME Patient Education Materials: Hand Sprain (ED) Forms: *Work Release Referrals: Meg Mead PA [Primary Care Provider] - Additional Instructions: FOLLOW UP WITH YOUR DOCTOR IF NOT COMPLETELY IMPROVED. RADIOLOGIST READING OF YOUR LEFT HAND IS PENDING. GET RECHECKED FOR ANY WORSENING OF YOUR CONDITION OR QUESTIONS OR CONCERNS. - Billing Disposition and Condition Condition: STABLE Disposition: Home
== END | disposition home or self-care (01) ==
LOC: UCCORT 19:00
DX: M79.89 Other specified soft tissue disorders (principal); M13.832 Other specified arthritis, left wrist; I10 Essential (primary) hypertension; Z88.0 Allergy status to penicillin; Z88.2 Allergy status to sulfonamides
CPT/HCPCS: 99213; G0463

== ENCOUNTER 2018-12-02 17:29 | Emergency (ER) | payer MEDICARE, MEDICAID ==
[2018-12-02 18:17] VITALS: BP 117/71
--- NOTE | 2018-12-02 18:18 | UC ---
Respiratory Complaint HPI - HPI Summary HPI Summary: 88-year-old female who lives in a [facility] who has had a moist cough over the past few days. She is a nonsmoker. No fever or chills. - History of Current Complaint Chief Complaint: UCGeneralIllness Stated Complaint: COUGH Time Seen by Provider: 12/02/18 17:55 Hx Obtained From: Patient Hx From Patient Unobtainable Due To: Dementia Hx Last Menstrual Period: n/a ?: No Onset/Duration: Gradual Onset Timing: Intermittent Episodes Severity Initially: Mild Severity Currently: Mild Pain Intensity: 0 Character: Cough: Nonproductive Aggravating Factors: Nothing Alleviating Factors: Nothing Associated Signs And Symptoms: Positive: Negative - Allergies/Home Medications Allergies/Adverse Reactions: Allergies Allergy/AdvReac Type Severity Reaction Status Date / Time Penicillins Allergy Unknown Unknown Verified 12/02/18 17:59 Reaction Details sulfamethoxazole Allergy Unknown Unknown Verified 12/02/18 17:59 [From Bactrim] Reaction Details trimethoprim [From Bactrim] Allergy Unknown Unknown Verified 12/02/18 17:59 Reaction Details Home Medications: Home Medications Bacitracin OINTMENT* 1 applic TOPICAL DAILY PRN 12/02/18 [History Confirmed 02/08] Dextran 70/Hypromellose [Artificial Tears] 1 each OP DAILY 12/02/18 [History Confirmed 12/02/18] Fluoride (Sodium) [Prevident Fluoride] 1.1 % DT DAILY 12/02/18 [History Confirmed 12/02/18] Methenamine Hippurate TAB* [Hiprex TAB*] 1 gm PO BID 12/02/18 [History Confirmed 12/02/18] Oxycodone TAB(NF) [Oxycodone HCl 10 MG] 10 mg PO BID 12/02/18 [History Confirmed 12/02/18] Sennosides/Docusate Sodium [Senna Plus Tablet] 1 each PO BEDTIME 12/02/18 [ History Confirmed 12/02/18] PMH/Surg Hx/FS Hx/Imm Hx Previously Healthy: Yes Cardiovascular History: Cardiac Disease, Hypertension GI/ History: Gastroesophageal Reflux Neurological History: CVA Psychological History: Depression - Surgical History Surgical History: None Surgery Procedure, Year, and Place: Laminectomies L3-L5,C4-T2 and fusion C4-T6, - Family History Known Family History: Positive: None, Hypertension Family History: lives in supportive [facility] -pt is unable to communicate, staff has no documentation of PFH - Social History Lives: [facility] Alcohol Use: None Substance Use Type: None Smoking Status (MU): Never Smoked Tobacco Have You Smoked in the Last Year: No - Immunization History Most Recent Influenza Vaccination: 2013 Review of Systems All Other Systems Reviewed And Are Negative: Yes Respiratory: Positive: Cough - Very moist cough Is Patient Immunocompromised?: No Physical Exam - Summary Physical Exam Summary: Patient is wheelchair-bound. Triage Information Reviewed: Yes Completion Of Physical Exam Limited Due To: Dementia Appearance: Well-Appearing, No Pain Distress, Thin Vital Signs: Initial Vital Signs Temp 98.8 F 12/02/18 18:15 Pulse 78 12/02/18 18:15 Resp 24 12/02/18 18:15 BP 117/71 12/02/18 18:15 Pulse Ox 96 12/02/18 18:15 Vital Signs Reviewed: Yes Eyes: Positive: Conjunctiva Clear ENT: Positive: Pharynx normal, TMs normal, Uvula midline Neck: Positive: Supple, Nontender, No Lymphadenopathy Respiratory: Positive: No respiratory distress, No accessory muscle use, Rhonchi - Scattered rhonchi, no distress. Cardiovascular: Positive: RRR, Murmur:Sys:Grade _?_/ - III/ heart murmur Musculoskeletal: Positive: Other: - Strength and range of motion limited to age and because she is wheelchair-bound. Neurological: Positive: Alert Psychological: Positive: Decreased Age Appropriate Behavior Respiratory Course/Dx - Course Course Of Treatment: Chest x-ray: Shows a left lingular infiltrate as interpreted by myself and Dr. Austin. The patient is given doxycycline 100 mg by mouth here and a prescription for 100 mg by mouth twice a day 10 days. They are to recheck with her primary care provider before the antibiotic is completed. - Differential Dx/Diagnosis Provider Diagnosis: Pneumonia Discharge ED - Sign-Out/Discharge Documenting (check all that apply): Patient Departure All imaging exams completed and their final reports reviewed: No - Discharge Plan Condition: Fair Disposition: HOME Prescriptions: DOXYcycline CAP(*) [DOXYcycline 100MG CAP(*)] 100 mg PO BID 10 Days #20 cap Patient Education Materials: Pneumonia (ED) Referrals: Meg Mead PA [Primary Care Provider] - Additional Instructions: No dairy products, antacids or multivitamins 2 hours before taking doxycycline and 2 hours after however you definitely want to take it with food. Increase fluids. Definite follow-up with your primary care provider for a recheck before the antibiotic is finished. If any worsening symptoms such as fever, chills, difficulty breathing, go to the emergency room. - Billing Disposition and Condition Condition: FAIR Disposition: Home
[2018-12-02] MEDS ORDERED: DOXYcycline CAP(*) 100 MG PO ONE (18:46)
--- NOTE | 2018-12-03 11:20 | UC ---
- Progress Note Progress Note: Final radiologist reading for chest x-ray from November comes back as bite by days later atelectasis no pneumonia seen. Provider interpretation the same date his left lingular infiltrate. Patient was treated with doxycycline. Patient call patient and let them know that the radiologist did not see a pneumonia. No change in treatment at this time continue the antibiotics and follow-up with his primary care doctor reevaluation sooner if worse or any questions or concerns. Course/Dx - Diagnoses Provider Diagnoses: Pneumonia Discharge ED - Sign-Out/Discharge Documenting (check all that apply): Patient Departure All imaging exams completed and their final reports reviewed: Yes - Discharge Plan Condition: Fair Disposition: HOME Prescriptions: DOXYcycline CAP(*) [DOXYcycline 100MG CAP(*)] 100 mg PO BID 10 Days #20 cap Patient Education Materials: Pneumonia (ED) Referrals: Meg Mead PA [Primary Care Provider] - Additional Instructions: No dairy products, antacids or multivitamins 2 hours before taking doxycycline and 2 hours after however you definitely want to take it with food. Increase fluids. Definite follow-up with your primary care provider for a recheck before the antibiotic is finished. If any worsening symptoms such as fever, chills, difficulty breathing, go to the emergency room. - Billing Disposition and Condition Condition: FAIR Disposition: Home
== END 2018-12-02 19:02 | disposition home or self-care (01) ==
LOC: UCCORT 17:29
DX: J18.9 Pneumonia, unspecified organism (principal); I10 Essential (primary) hypertension; Z88.0 Allergy status to penicillin; Z88.8 Allergy status to other drugs, medicaments and biological substances; Z86.73 Personal history of transient ischemic attack (TIA), and cerebral infarction without residual deficits; Z79.899 Other long term (current) drug therapy
CPT/HCPCS: 71046; 99212; A9270-GY; G0463

== ENCOUNTER 2018-12-23 09:48 | Emergency (ER) | payer MEDICARE, MEDICAID ==
[2018-12-23 10:49] VITALS: BP 115/99
--- NOTE | 2018-12-23 11:07 | UC ---
Lower Extremity/Ankle HPI - HPI Summary HPI Summary: Per financial management consultant: "LEFT SECOND TOE OPEN SORE, REDNESS AND SWELLING OF TOE. PT IS WHEEL CHAIR BOUND AND LIVES IN A [facility]. NO FEVER HER STAFF IS AWARE OF. " -Oscar said that they notcied this morning that she was rubbing that toe against a wall. she wears and open toe boot on left leg. Oscar denies her wearing a closed toe shoe -unable to obtain history from pt -no dc/ no fevers/chills. - History of Current Complaint Chief Complaint: UCLowerExtremity Stated Complaint: LEFT TOE COMPLAINT Time Seen by Provider: 12/23/18 10:52 Hx Last Menstrual Period: n/a Pain Intensity: 3 - Allergies/Home Medications Allergies/Adverse Reactions: Allergies Allergy/AdvReac Type Severity Reaction Status Date / Time Penicillins Allergy Unknown Unknown Verified 12/23/18 10:33 Reaction Details sulfamethoxazole Allergy Unknown Unknown Verified 12/23/18 10:33 [From Bactrim] Reaction Details trimethoprim [From Bactrim] Allergy Unknown Unknown Verified 12/23/18 10:33 Reaction Details Home Medications: Home Medications Cholecalciferol (Vitamin D3) [Vitamin D3] 1,000 unit PO DAILY 12/23/18 [History Confirmed 12/23/18] Clotrimazole 1% CREAM* [Clotrimazole 1%*] 1 applic TOPICAL BID 12/23/18 [ History Confirmed 12/23/18] Triamcinolone 0.1% CREAM (NF) [Kenalog 0.1% Cream (NF)] 1 applic TOPICAL [History] PMH/Surg Hx/FS Hx/Imm Hx Previously Healthy: Yes - chronically ill, dementia,. hopyer lift. no acute illness. - Surgical History Surgical History: None Surgery Procedure, Year, and Place: Laminectomies L3-L5,C4-T2 and fusion C4-T6, - Family History Known Family History: Positive: Hypertension Family History: lives in [facility] -pt is unable to communicate, staff has no documentation of PFH - Social History Alcohol Use: None Substance Use Type: None Smoking Status (MU): Never Smoked Tobacco Have You Smoked in the Last Year: No - Immunization History Most Recent Influenza Vaccination: 2013 Review of Systems All Other Systems Reviewed And Are Negative: Yes Constitutional: Positive: Negative Skin: Positive: Other - see above Respiratory: Positive: Negative Cardiovascular: Positive: Negative Gastrointestinal: Positive: Negative Genitourinary: Positive: Negative Neurovascular: Positive: Other - unable to obtain Musculoskeletal: Positive: Other: - alison lift procedure Psychological: Positive: Other - dementia - unable to provide meaningful history. Is Patient Immunocompromised?: No Physical Exam Triage Information Reviewed: Yes Completion Of Physical Exam Limited Due To: Other - poor historian - unavble to obtain history. resides in chronic facility. sits comfotably in w.c w/ seatbelt. sh is a alison lift Vital Signs: Initial Vital Signs Temp 98.7 F 12/23/18 10:34 Pulse 77 12/23/18 10:34 Resp 18 12/23/18 10:34 BP 115/99 12/23/18 10:34 Pulse Ox 97 12/23/18 10:34 Vital Signs Reviewed: Yes ENT Exam: Normal Neck exam: Normal Respiratory Exam: Normal Cardiovascular Exam: Normal Abdominal Exam: Normal - while in WC examined Musculoskeletal: Positive: Other: - left 2nd toe extensor distal toe w/ stage 2 ulcer. no surrounding erythema. no d/c. no weaping. CR brisk. sensation appears to be intact. Neurological: Positive: Other: - unable to obtain hx. dementia. Psychological Exam: Normal Skin: Positive: Breakdown - see above Lower Extremity Course/Dx - Course Course Of Treatment: 2nd toe extensor ulceration that does not appear infected. Staff has foudn her rubing that toe against a wall that is likely cause of ulceration as she does not wear a closed shoe but a boot. There is no e/o infection at this time. -bacitracin is applied along w/ a dressing. keep clean and watch for s/s infection. -BP elevated d/t acute care -left toe xray to eval for osteomyelitis as she has had prior hx of this on rt leg: "Report: #. Bone density appears decreased throughout. No fracture evident. Negative for dislocation. #. No focal osteolysis or periosteal reaction evident to suggest osteomyelitis. #. Peripheral vascular calcifications. #. Soft tissue swelling most prominent about the second toe. No conspicuous subcutaneous emphysema or foreign body evident. IMPRESSION: #. Soft tissue swelling most prominent at the second toe without compelling radiographic findings of osteomyelitis. If there is persistent clinical concern consider follow-up MRI or in setting of contraindication to MRI 3 phase bone scan. <Electronically signed by Abbe Hale MD in OV> 12/23/18 1132" - Differential Dx/Diagnosis Differential Diagnosis/HQI/PQRI: Fracture (Closed), Infection, Osteomyelitis Provider Diagnosis: Ulcer of toe of left foot Discharge ED - Sign-Out/Discharge Documenting (check all that apply): Patient Departure All imaging exams completed and their final reports reviewed: Yes - Discharge Plan Condition: Stable Disposition: HOME Patient Education Materials: Acute Wound Care (ED) Referrals: Meg Mead PA [Primary Care Provider] - Additional Instructions: Please make sure to have her follow up with [place] [facility] [place] Please call them at this following number on Tuesday for an appt. This wound can progress and lead to an amputation potentially. It is very important that she see's wound care -Alternatively, you can follow up at [facility] if transportation does not allow further travel. -In the mean time, you can apply bacitracin ointment and a bandaid or telfa. Avoid shoes that will apply pressure to that area. -xray of 2nd toe doesnt show a fracture or any sign of infection,. however, further imaging should be done if symptoms increase or persist. - Billing Disposition and Condition Condition: STABLE Disposition: Home
== END 2018-12-23 12:12 | disposition home or self-care (01) ==
LOC: UCCORT 09:48
DX: L97.529 Non-pressure chronic ulcer of other part of left foot with unspecified severity (principal); Z88.0 Allergy status to penicillin; Z88.2 Allergy status to sulfonamides; Z99.3 Dependence on wheelchair
CPT/HCPCS: 99212; G0463

== ENCOUNTER 2019-03-31 13:32 | Emergency (ER) | payer MEDICARE, MEDICAID ==
[2019-03-31 15:12] VITALS: BP 131/51
--- NOTE | 2019-03-31 15:24 | UC ---
Skin Complaint HPI - HPI Summary HPI Summary: Pt is accompanied by caregiver. Caregiver states that pt has had wound on left second toe at DIP joint X 1- 2 months. Caregiver reports that left second two has become increasingly tender, and swollen and discolored. Pt has small dime size pressure ulcer that serous fluid drains in scan t amount. - History of Current Complaint Chief Complaint: UCLowerExtremity Time Seen by Provider: 03/31/19 14:53 Stated Complaint: LEFT second TOE RECURRING WOUND Hx Obtained From: Family/Teaching Assistant Hx Last Menstrual Period: n/a ?: No Onset/Duration: Gradual Onset, Lasting Weeks, Still Present, Worse Since - initial onset Skin Exposure Onset/Duration: Weeks Ago Timing: Constant Onset Severity: Mild Current Severity: Moderate Pain Intensity: 7 Location: Discrete - left second toe Character: Swelling, Pain, Redness, Painful Aggravating Factor(s): Touch Alleviating Factor(s): Nothing Associated Signs & Symptoms: Positive: Drainage - serous, clear, Tenderness - Allergy/Home Medications Allergies/Adverse Reactions: Allergies Allergy/AdvReac Type Severity Reaction Status Date / Time Penicillins Allergy Unknown Unknown Verified 03/31/19 14:56 Reaction Details sulfamethoxazole Allergy Unknown Unknown Verified 03/31/19 14:56 [From Bactrim] Reaction Details trimethoprim [From Bactrim] Allergy Unknown Unknown Verified 03/31/19 14:56 Reaction Details Home Medications: Home Medications Omeprazole 20 mg PO DAILY 03/31/19 [History Confirmed 03/31/19] PMH/Surg Hx/FS Hx/Imm Hx Previously Healthy: Yes - dementia Neurological History: Dementia - Surgical History Surgical History: None Surgery Procedure, Year, and Place: Laminectomies L3-L5,C4-T2 and fusion C4-T6, - Family History Known Family History: Positive: Hypertension Family History: lives in supportive longterm -pt is unable to communicate, staff has no documentation of PFH - Social History Occupation: Retired Lives: [facility] Alcohol Use: None Substance Use Type: None Smoking Status (MU): Never Smoked Tobacco Have You Smoked in the Last Year: No - Immunization History Most Recent Influenza Vaccination: 2013 Vaccination Up to Date: Yes Review of Systems All Other Systems Reviewed And Are Negative: Yes Constitutional: Positive: Negative Skin: Positive: Other - pressure ulcer dip joint dime size left second toe Eyes: Positive: Negative ENT: Positive: Negative Respiratory: Positive: Negative Cardiovascular: Positive: Negative Gastrointestinal: Positive: Negative Genitourinary: Positive: Negative Motor: Positive: Negative, Decreased ROM - pt is at baseline. uses wheelchair. Neurovascular: Positive: Negative - pt is at baseline Musculoskeletal: Positive: Negative - pt at baseline Neurological: Positive: Negative Psychological: Positive: Negative Is Patient Immunocompromised?: No Physical Exam Triage Information Reviewed: Yes Appearance: Well-Appearing Vital Signs: Initial Vital Signs Temp 98.4 F 03/31/19 14:58 Pulse 87 03/31/19 14:58 Resp 24 03/31/19 14:58 BP 131/51 03/31/19 14:58 Pulse Ox 100 03/31/19 14:58 Vital Signs Reviewed: Yes Eye Exam: Normal ENT Exam: Normal Dental Exam: Normal Neck exam: Normal Respiratory: Positive: No respiratory distress Musculoskeletal Exam: Normal - at baseline Neurological Exam: Normal - at baseline Neurological: Positive: Alert Psychological Exam: Normal Skin: Positive: Breakdown - skin color slightly mottled, left second toe small dime size with serous drainage. toe is lightly swollne, non pititng, pt/ c/o tenderness with examination, unable to assess capillary refill due to c/o pain. Pedal pulse palpable. Course/Dx - Differential Diagnoses - Skin Complaint Differential Diagnoses: Cellulitis, MRSA - Diagnoses Provider Diagnosis: Pressure ulcer of toe of left foot, stage 2 Discharge ED - Sign-Out/Discharge Documenting (check all that apply): Patient Departure All imaging exams completed and their final reports reviewed: No Studies - Discharge Plan Condition: Stable Disposition: HOME Prescriptions: DOXYcycline CAP(*) [DOXYcycline 100MG CAP(*)] 100 mg PO Q12H #20 cap Patient Education Materials: Wound Infection (ED) Referrals: Lenore Perez MD [Primary Care Provider] - As Soon As Possible - Billing Disposition and Condition Condition: STABLE Disposition: Home
== END 2019-03-31 15:42 | disposition home or self-care (01) ==
LOC: UCCORT 13:32
DX: L89.892 Pressure ulcer of other site, stage 2 (principal); Z88.2 Allergy status to sulfonamides; Z88.1 Allergy status to other antibiotic agents; Z88.0 Allergy status to penicillin
CPT/HCPCS: 99212; G0463